=== PATIENT | female | born 2000 ===

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

== ENCOUNTER 2019-01-28 14:43 | Outpatient (CLI) | payer OTHER ==
[2019-01-28 15:25] LABS: Appearance,Urine Clear (Clear); Bilirubin,Urine Negative (Negative); Blood,Urine Negative (Negative); Color,Urine Light Yellow; Glucose,Urine (UA) Negative (Negative); Ketones,Urine Negative (Negative); Leukocyte Esterase,Urine Negative (Negative); Nitrite,Urine Negative (Negative); Protein,Urine Negative (Negative); Specific Gravity,Urine 1.005 (1.001-1.035); Urobilinogen,Urine <2.0 mg/dL (<2.0)
[2019-01-28 15:53] VITALS: BP 123/73; PULSE 86; RESP 16; TEMP 98.2
--- NOTE | 2019-01-28 18:05 | P.MSEPDOC ---
Presenting Problems - Arrival Data Date of Arrival on Unit: 01/28/19 Time of Arrival on Unit: 14:43 Mode of Transport: Ambulatory - Complaint OB-Reason for Admission/Chief Complaint: Possible Onset of Labor Comment: abdominal pain since 1300 Medical History - Information : 1 Para: 0 Term: 0 : 0 Abortions: Spontaneous or Elective: 0 Number of Living Children: 0 - Gestational Age Gestational Age by SHERRON (wks/days): 28 Weeks and 3 Days - History Comment: pt is DOM sees Dr. Thomas, denies abnormality with , had 15 week ultrasound Review of Systems - Review of Systems Constitutional: No problems Breast: No problems ENT: No problems Cardiovascular: No problems Respiratory: No problems Gastrointestinal: No problems Genitourinary: No problems Musculoskeletal: No problems Neurological: No problems Skin: No problems Vital Signs - Temperature Temperature: 98.2 F Temperature Source: Temporal Artery Scan - Pulse Right Sitting Brachial Pulse Rate: 86 Pulse Assessment Method: Automatic Cuff - Respirations Respiratory Rate: 16 Oxygen Delivery Method: Room Air - Blood Pressure Right Arm Sitting Blood Pressure: 123/73 Blood Pressure Mean: 89 Blood Pressure Source: Automatic Cuff Medical Screen Scoring (Pre) - Cervical Exam Dilation: 1-3 cm = 1 Membranes: Intact - Uterine Contractions Frequency: N/A Duration: N/A Intensity: N/A - Assessment - Baby A Baseline FHR: 140 Heart Rate - NICHD Category: Category I (Normal) = 0 Position: N/A Station: N/A - Total Score - Baby A Total Score - Baby A: 1 - Total Score - Baby B Total Score - Baby B: 1 - Total Score - Baby C Total Score - Baby C: 1 - Level of Risk - Baby A Level of Risk - Baby A: Low (0-5) - Level of Risk - Baby B Level of Risk - Baby B: Low (0-5) - Level of Risk - Baby C Level of Risk - Baby C: Low (0-5) Medical Screen Scoring (Post) - Cervical Exam Dilation: 1-3 cm = 1 - Uterine Contractions Frequency: N/A - Assessment - Baby A Heart Rate: 140 Heart Rate - NICHD Category: Category I (Normal) = 0 NST: Reactive - Total Score Total Score - Baby A: 1 Total Score - Baby B: 1 Total Score - Baby C: 1 - Post Treatment Level of Risk Post Treatment Level of Risk - Baby A: Low (0-5) Post Treatment Level of Risk - Baby B: Low (0-5) Post Treatment Level of Risk - Baby C: Low (0-5) Physician Notification (Post) - Physician Notified Physician Notified Date: 01/28/19 Physician Notified Time: 15:55 Spoke With: zEio New Order Received: Yes - Notification Comment Comment: Pt feels much better, UA clear, Dr. Holguin orders ok to discharge follow up with Martha Disposition - Disposition OB Disposition: Discharge to home, Written follow up instructions reviewed Discharge Date: 01/28/19 Discharge Time: 16:00 I agree with the RN Medical Screening Exam: Yes Risk & Benefit of care provided described in d/c instruction: Yes Diagnosis: FALSE LABOR BEFORE 37 COMPLETED WEEKS OF GEST, THIRD TRI (Patient presented to labor and delivery with complaints of contractions. Patient's pre care is with Dr. Thomas and she states that she called the office and they told her since Dr. Thomas was on vacation she should come to [facility] labor and delivery. We have no records on this patient. Patient's cervical exam is closed internal os fibronectin is negative. She's had no appreciable contractions. This time there is no evidence of labor. There is no ev idence of maternal compromise. Patient was discharged home follow up with Dr. Thomas call her office if any further concerns. Patient was informed that she is always welcome here at our Hospital however since her care is with Dr. Thomas she should present to [facility].)
== END 2019-01-28 16:00 | disposition home or self-care (01) ==
LOC: FBPOP 14:43
PROVIDERS: ATTEND Obstetrics & Gynecology
DX: O47.03 False labor before 37 completed weeks of gestation, third trimester (principal); Z3A.28 28 weeks gestation of pregnancy
CPT/HCPCS: 59025; 82731; 81003; G0463; 99213

== ENCOUNTER 2019-03-10 13:32 | Outpatient (CLI) | payer OTHER ==
[2019-03-10 15:04] VITALS: BP 134/74; PULSE 99; RESP 18; TEMP 97.6
--- NOTE | 2019-03-12 15:08 | P.MSEPDOC ---
Presenting Problems - Arrival Data Date of Arrival on Unit: 03/10/19 Time of Arrival on Unit: 13:32 Mode of Transport: EMS - Complaint OB-Reason for Admission/Chief Complaint: Pain Comment: Lower ab pain after walking 20+blocks today Medical History - Information : 1 Para: 0 Term: 0 : 0 Abortions: Spontaneous or Elective: 0 Number of Living Children: 0 - Gestational Age Gestational Age by SHERRON (wks/days): 34 Weeks and 2 Days Review of Systems - Review of Systems Constitutional: No problems Breast: No problems ENT: No problems Cardiovascular: No problems Respiratory: No problems Gastrointestinal: No problems Genitourinary: No problems Musculoskeletal: No problems Neurological: No problems Skin: No problems Vital Signs - Temperature Temperature: 97.6 F Temperature Source: Temporal Artery Scan - Pulse Right Sitting Brachial Pulse Rate: 99 Pulse Assessment Method: Automatic Cuff - Respirations Respiratory Rate: 18 Oxygen Delivery Method: Room Air O2 Sat by Pulse Oximetry: 99 - Blood Pressure Right Arm Sitting Blood Pressure: 134/74 Blood Pressure Mean: 94 Blood Pressure Source: Automatic Cuff Medical Screen Scoring (Pre) - Cervical Exam Dilation: 1-3 cm = 1 Membranes: Intact - Uterine Contractions Frequency: N/A, > 5 minutes apart = 1 Duration: N/A Intensity: N/A - Maternal Vital Signs Maternal Temperature: N/A Maternal Blood Pressure: N/A Signs of Preeclampsia: N/A Maternal Respirations: N/A - Maternal Trauma Maternal Trauma: N/A - Assessment - Baby A Baseline FHR: 150 Heart Rate - NICHD Category: Category I (Normal) = 0 NST: Reactive Position: N/A Station: N/A - Total Score - Baby A Total Score - Baby A: 2 - Total Score - Baby B Total Score - Baby B: 2 - Total Score - Baby C Total Score - Baby C: 2 - Level of Risk - Baby A Level of Risk - Baby A: Low (0-5) - Level of Risk - Baby B Level of Risk - Baby B: Low (0-5) - Level of Risk - Baby C Level of Risk - Baby C: Low (0-5) Physician Notification (Pre) - Physician Notified Physician Notified Date: 03/10/19 Physician Notified Time: 15:14 Physician/Practitioner Notifed:: Yasmany Spoke With: Yasmany New Order Received: Yes - Notification Comment Comment: Spk c\Dr. Jade, advsd , 34 09/06 reports to triage via EMS after walking along distance and experiencing lower ab pain, after rest pt states pain has subsided greatly. SVE //high, no change since triage visit 01/28. Pt reports Sz d.o. with no treatment, last SZ several mths ago. Sees Dr. Thomas for care. Orders rec'd to orally hydrate pt, recheck SVE, if no chng may be d/c home. Medical Screen Scoring (Post) - Cervical Exam Dilation: 1-3 cm = 1 Membranes: Intact - Total Score Total Score - Baby A: 1 Total Score - Baby B: 1 Total Score - Baby C: 1 - Post Treatment Level of Risk Post Treatment Level of Risk - Baby A: Low (0-5) Post Treatment Level of Risk - Baby B: Low (0-5) Post Treatment Level of Risk - Baby C: Low (0-5) Disposition - Disposition OB Disposition: Discharge to home, Written follow up instructions reviewed I agree with the RN Medical Screening Exam: Yes Risk & Benefit of care provided described in d/c instruction: Yes Diagnosis: FALSE LABOR BEFORE 37 COMPLETED WEEKS OF GEST, THIRD TRI
== END 2019-03-10 15:00 | disposition home or self-care (01) ==
LOC: FBPOP 13:32
PROVIDERS: ATTEND Obstetrics & Gynecology Obstetrics
DX: O47.03 False labor before 37 completed weeks of gestation, third trimester (principal); Z3A.34 34 weeks gestation of pregnancy
CPT/HCPCS: 59025; G0463; 99213

== ENCOUNTER → 2019-03-26 | Outpatient (CLI) | payer OTHER ==
--- NOTE | 2019-03-26 12:24 | US ---
EXAMINATION TYPE: US OB >= 14 wk fetus DATE OF EXAM: 03/26/2019 COMPARISON: None CLINICAL HISTORY: Z34.90 Supervision of normal ; growth; TECHNIQUE: Transabdominal (TA) GESTATIONAL AGE / DATING Physician Established: (37 weeks/0 days) EDC: 04/16/2019 Dates by LMP: (36 weeks/4 days) EDC: 04/19/2019 Dates by First Scan: No previous US here. Dates by Current Scan: (34 weeks/0 days) EDC: 05/07/2019 Beta HCG (if available): NA SURVEY IUP: Single PLACENTA: Anterior , multiple placental lakes vs. fenestrations with superior placental hypoechoic ar ea = 2.1 x 2.3 x 1.1cm and inferior placental hypoechoic area = 1.5 x 1.1 x 1.6cm. PREVIA: No Previa DOMENIC: 12.7 cm Normal CERVICAL LENGTH (transabdominal: norm > 3.0cm): 4.2 cm BIOMETRY PRESENTATION: Vertex LIE: Longitudinal BPD: 8.6 cm 34 weeks / 4 days HC: 31.5 cm 35 weeks / 2 days AC: 29.9 cm 33 weeks / 6 days FL: 6.6 cm 33 weeks / 6 days ESTIMATED WEIGHT IN GRAMS: 2341 grams ESTIMATED WEIGHT IN LBS/OZ: 5 lbs. 3 oz. WEIGHT PERCENTAGE BASED ON ESTABLISHED DATES: 3.7% based on physician's EDC HC/AC: 1.05 Normal FL/AC: 22.01 Normal HEART RATE: 152 bpm RHYTHM: Normal Single, live IUP, 34 weeks/0 days, EDC: 05/07/2019, [id number]; low EFW as is less than 10%, but is bas ed on physician's EDC. IMPRESSION: Single live intrauterine with a sonographic age of 34 weeks and 0 days and estimated date o f delivery of 05/07/2019. Dates are discordant with menstrual age. Weight percentage based on [facility] dates of 3.7% however dates are discordant as discussed above.
== END | disposition home or self-care (01) ==
LOC: RADUSWWP 11:00
PROVIDERS: ATTEND Obstetrics & Gynecology
DX: Z34.93 Encounter for supervision of normal pregnancy, unspecified, third trimester (principal)
CPT/HCPCS: 76805

== ENCOUNTER 2019-03-27 11:54 | Emergency (ER) | payer OTHER ==
[2019-03-27 12:21] VITALS: BP 113/77; PULSE 96; RESP 18; TEMP 97.9
--- NOTE | 2019-03-27 13:06 | ED ---
ENT HPI - General Chief complaint: ENT Stated complaint: ENT (37wks preg) Time Seen by Provider: 03/27/19 12:55 Source: patient, RN notes reviewed Mode of arrival: ambulatory Limitations: no limitations - History of Present Illness Initial comments: 18-year-old female presents emergency Department with chief complaint of sore throat. Patient states it has been off for last few days. Patient was still fever. Patient states her tonsils are swollen with white exudates. No abdominal pain. Patient's 37 weeks . She has no complaints of vaginal bleeding or vaginal discharge she does complain of mild fullness of her ears with no drainage denies any headache or dizziness no neck pain or neck stiffness denies any cough or chest congestion [id number] cold medications taken. - Related Data Home Medications Medication Instructions Recorded Confirmed Zqa-Qjni-Crshf Acid 1 cap PO DAILY 06/20/18 03/10/19 [-U Capsule (formulary)] Previous Rx's Medication Instructions Recorded Amoxicillin 500 mg PO Q8H #30 capsule 03/27/19 Allergies Allergy/AdvReac Type Severity Reaction Status Date / Time Fish Containing Products Allergy Swelling Verified 03/27/19 13:14 [Fish] shellfish derived [Shellfish] Allergy Swelling Verified 03/27/19 13:14 Review of Systems ROS Statement: Those systems with pertinent positive or pertinent negative responses have been documented in the HPI. ROS Other: All systems not noted in ROS Statement are negative. Past Medical History Past Medical History: No Reported History History of Any Multi-Drug Resistant Organisms: None Reported Past Surgical History: No Surgical Hx Reported Past Psychological History: No Psychological Hx Reported Smoking Status: Never smoker General Exam Limitations: no limitations General appearance: alert, in no apparent distress Head exam: Present: atraumatic, normocephalic, normal inspection Eye exam: Present: normal appearance, PERRL, EOMI. Absent: scleral icterus, conjunctival injection, periorbital swelling ENT exam: Present: mucous membranes moist, TM's normal bilaterally, normal exte rnal ear exam. Absent: normal oropharynx (Erythema with exudates swollen) Neck exam: Present: normal inspection, full ROM, lymphadenopathy (Bilateral anterior). Absent: tenderness, meningismus Respiratory exam: Present: normal lung sounds bilaterally. Absent: respiratory distress, wheezes, rales, rhonchi, stridor Cardiovascular Exam: Present: regular rate, normal rhythm, normal heart sounds. Absent: systolic murmur, diastolic murmur, rubs, gallop, clicks GI/Abdominal exam: Present: soft, normal bowel sounds. Absent: distended, tenderness, guarding, rebound, rigid Course Vital Signs 03/27/19 12:19 Temperature 97.9 F Pulse Rate 96 Respiratory 18 Rate Blood Pressure 113/77 O2 Sat by Pulse 97 Oximetry Medical Decision Making - Medical Decision Making 18-year-old female presented for sore throat. Patient will be clinically treated for strep pharyngitis. Patient started amoxicillin. Return parameters were discussed. Disposition Clinical Impression: Acute pharyngitis Disposition: HOME SELF-CARE Condition: Stable Instructions (If sedation given, give patient instructions): Pharyngitis (ED) Additional Instructions: Please return to the Emergency Department if symptoms worsen or any other concerns. Prescriptions: Amoxicillin 500 mg PO Q8H #30 capsule Is patient prescribed a controlled substance at d/c from ED?: No Referrals: None,Stated [Primary Care Provider] - 1-2 days Time of Disposition: 13:06
== END 2019-03-27 13:17 | disposition home or self-care (01) ==
LOC: EC 11:54
DX: O99.513 Diseases of the respiratory system complicating pregnancy, third trimester (principal); J02.9 Acute pharyngitis, unspecified; Z3A.37 37 weeks gestation of pregnancy; Z91.013 Allergy to seafood
CPT/HCPCS: 99283

== ENCOUNTER 2019-07-04 14:34 | Emergency (ER) | payer OTHER ==
[2019-07-04] MEDS ORDERED: LIDOCAINE 1% INJ 10MG/ML (20 ML MDV) SQ ONE (16:01)
--- NOTE | 2019-07-04 16:04 | ED ---
Skin/Abscess/FB HPI - General Chief complaint: Skin/Abscess/Foreign Body Stated complaint: Lip piercing stuck in lip Time Seen by Provider: 07/04/19 15:56 Source: patient, RN notes reviewed Mode of arrival: ambulatory Limitations: no limitations - History of Present Illness Initial comments: 18-year-old presents emergency dept with chief complaint of lip ring being stuck. 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 Patient states it but the patient today with states her lip was swollen so she got up with a correct and on it. Patient states that and of her piercing went in. Patient denies any other complaints. - Related Data Home Medications Medication Instructions Recorded Confirmed Orp-Wxeu-Szqqj Acid 1 cap PO DAILY 06/20/18 03/27/19 [-U Capsule (formulary)] Previous Rx's Medication Instructions Recorded Amoxicillin 500 mg PO Q8H #30 capsule 03/27/19 Allergies Allergy/AdvReac Type Severity Reaction Status Date / Time Fish Containing Products Allergy Swelling Verified 07/04/19 15:02 [Fish] shellfish derived [Shellfish] Allergy Swelling Verified 07/04/19 15:02 Review of Systems ROS Statement: Those systems with pertinent positive or pertinent negative responses have been documented in the HPI. ROS Other: All systems not noted in ROS Statement are negative. Past Medical History Past Medical History: No Reported History History of Any Multi-Drug Resistant Organisms: None Reported Past Surgical History: No Surgical Hx Reported Past Psychological History: No Psychological Hx Reported Smoking Status: Never smoker Past Alcohol Use History: None Reported Past Drug Use History: None Reported General Exam Limitations: no limitations General appearance: alert, in no apparent distress Head exam: Present: atraumatic, normocephalic, normal inspection ENT exam: Present: mucous membranes moist. Absent: normal oropharynx (Swelling upper lip noted, piercing noted unable to visualize back of piercing) Respiratory exam: Present: normal lung sounds bilaterally. Absent: respiratory distress, wheezes, rales, rhonchi, stridor Cardiovascular Exam: Present: regular rate, normal rhythm, normal heart sounds. Absent: systolic murmur, diastolic murmur, rubs, gallop, clicks Course Vital Signs 07/04/19 15:06 Temperature 98.1 F Pulse Rate 87 Respiratory 16 Rate Blood Pressure 110/87 O2 Sat by Pulse 99 Oximetry Procedures - Forgein Body Removal Soft Tissue Consent Obtained: verbal consent Site: lip Anesthetic Used: lidocaine 1% Amount (mLs): 2 Foreign Body Suspected: Other (Piercing) Foreign Body Removed: yes Foreign Body Removal Technique: Instrumentation Patient Tolerated Procedure: well, no complications Medical Decision Making - Medical Decision Making Patient's piercing was removed in emergency, no comp patients. Patient will be discharged return parameters were discussed. Disposition Clinical Impression: Body piercing as cause of accidental injury Disposition: HOME SELF-CARE Condition: Stable Instructions (If sedation given, give patient instructions): Acute Wounds (ED) Additional Instructions: Please return to the Emergency Department if symptoms worsen or any other concerns. Is patient prescribed a controlled substance at d/c from ED?: No Referrals: None,Stated [Primary Care Provider] - 1-2 days Time of Disposition: 16:19
[2019-07-04 16:35] VITALS: BP 138/70; PULSE 90; RESP 15; TEMP 98
== END 2019-07-04 16:34 | disposition home or self-care (01) ==
LOC: EC 14:34
DX: S00.551A Superficial foreign body of lip, initial encounter (principal); Z91.013 Allergy to seafood; W27.8XXA Contact with other nonpowered hand tool, initial encounter
CPT/HCPCS: 10120; 99283

== ENCOUNTER 2019-07-26 23:16 | Emergency (ER) | payer OTHER ==
[2019-07-26 23:22] VITALS: RESP 16
[2019-07-27 01:08] LABS: Appearance,Urine Cloudy (Clear); Bacteria,Urine Rare /hpf; Bilirubin,Urine Negative (Negative); Blood,Urine Moderate (Negative); Color,Urine Yellow; Glucose,Urine (UA) Negative (Negative); Ketones,Urine Negative (Negative); Leukocyte Esterase,Urine Trace (Negative); Mucus,Urine Many /hpf; Nitrite,Urine Negative (Negative); PH, Urine 6.5 (5.0-8.0); Protein,Urine Trace (Negative); RBC,Urine 3 /hpf (0-5); Squamous Epithelial Cell,Urine 14 /hpf (0-4); Urobilinogen,Urine <2.0 mg/dL (<2.0); WBC,Urine 12 /hpf (0-5)
--- NOTE | 2019-07-27 01:18 | XR ---
EXAMINATION TYPE: XR chest 2V DATE OF EXAM: 07/27/2019 COMPARISON: NONE HISTORY: Cough and fever TECHNIQUE: 2 views FINDINGS: Heart and mediastinum are normal. Lungs are clear. Diaphragm is normal. Bony thorax appears normal. IMPRESSION: Normal chest
[2019-07-27] MEDS ORDERED: AMOXICILLIN 875 MG TAB PO STA (01:41)
--- NOTE | 2019-07-27 01:44 | ED ---
General Adult HPI - General Chief complaint: ENT Stated complaint: Ear pain Time Seen by Provider: 07/26/19 23:20 Source: patient Mode of arrival: ambulatory Limitations: no limitations - History of Present Illness Initial comments: The patient is a 18-year-old female with no past history of presents emergency room with reported bilateral ear pain and nasal congestion. States that her ear has been hurting her for the past week. The right hurts worse than the left. Has a history of chronic ear infections. Was supposed to follow up with an ENT however never did. She also admits to clear nasal drainage and a sore scratchy throat. Admits to nonproductive cough. States that she was having fevers at home however the fever broke yesterday. She has not taken any Motrin or Tylenol today for her symptoms. Denies taking any medications [id number]. Denies any headaches or visual changes. No nausea or vomiting. Denies any abdominal pain or change in her bowel or bladder habits. Does admit to the possibility of . There are no alleviating, precipitating or modifying factors - Related Data Home Medications Medication Instructions Recorded Confirmed Xhg-Bjva-Gfzfc Acid 1 cap PO DAILY 06/20/18 03/27/19 [-U Capsule (formulary)] Previous Rx's Medication Instructions Recorded Amoxicillin 500 mg PO Q8H #30 capsule 03/27/19 Amoxicillin 875 mg PO Q12HR #14 tablet 07/27/19 Fluticasone Nasal [place] [Flonase 2 spr EA NOSTRIL DAILY #1 bottle 07/27/19 Nasal [place]] Pseudoephedrine 12Hr [Sudafed 12Hr] 120 mg PO Q12H #1 box 07/27/19 Allergies Allergy/AdvReac Type Severity Reaction Status Date / Time Fish Containing Products Allergy Swelling Verified 07/26/19 23:22 [Fish] shellfish derived [Shellfish] Allergy Swelling Verified 07/26/19 23:22 Review of Systems ROS Statement: Those systems with pertinent positive or pertinent negative responses have been documented in the HPI. ROS Other: All systems not noted in ROS Statement are negative. Past Medical History Past Medical History: No Reported History History of Any Multi-Drug Resistant Organisms: None Reported Past Surgical History: No Surgical Hx Reported Past Psychological History: No Psychological Hx Reported Smoking Status: Never smoker Past Alcohol Use History: None Reported Past Drug Use History: None Reported General Exam Limitations: no limitations General appearance: alert, in no apparent distress Head exam: Present: atraumatic, normocephalic, normal inspection Eye exam: Present: normal appearance, PERRL, EOMI. Absent: scleral icterus, conjunctival injection, periorbital swelling ENT exam: Present: other (nasal congestion. njected right tm) Neck exam: Present: normal inspection. Absent: tenderness, meningismus, lymphadenopathy Respiratory exam: Present: normal lung sounds bilaterally. Absent: respiratory distress, wheezes, rales, rhonchi, stridor Cardiovascular Exam: Present: regular rate, normal rhythm, normal heart sounds. Absent: systolic murmur, diastolic murmur, rubs, gallop, clicks GI/Abdominal exam: Present: soft, normal bowel sounds. Absent: distended, tenderness, guarding, rebound, rigid Extremities exam: Present: normal inspection, full ROM, normal capillary refill. Absent: tenderness, pedal edema, joint swelling, calf tenderness Back exam: Present: normal inspection Neurological exam: Present: alert, oriented X3, CN II-XII intact Psychiatric exam: Present: normal affect, normal mood Skin exam: Present: warm, dry, intact, normal color. Absent: rash Course Vital Signs 07/26/19 07/27/19 23:19 02:02 Temperature 98.0 F 97.9 F Pulse Rate 67 72 Respiratory 16 16 Rate Blood Pressure 126/85 133/92 O2 Sat by Pulse 99 99 Oximetry Medical Decision Making - Medical Decision Making Upon arrival the patient was placed in room 11. A thorough history and physical exam was performed. Patient does have an erythematous right tympanic membrane. I did recommend influenza testing and a chest x-ray because of the patient's reported fevers and cough. I did test the patient for as well as she does have concern for . Influenza A and B are negative. Chest x-ray is negative. Urine hCG is negative. Discuss results with the patient. Give her dose of amoxicillin while in the ED. She will be provided with prescriptio ns for Flonase, Sudafed and amoxicillin. I did give her follow-up information for the ENT on-call. Patient has any new or worsening symptoms she should return to the emergency room. The patient was discharged home in stable condition - Lab Data Lab Results 07/27/19 07/27/19 07/27/19 Range/Units 00:37 00:37 00:37 Urine Color Yellow Urine Appearance Cloudy H (Clear) Urine pH 6.5 (5.0-8.0) Ur Specific [place] 1.020 (1.001-1.035) Urine Protein Trace H (Negative) Urine Glucose (UA) Negative (Negative) Urine Ketones Negative (Negative) Urine Blood Moderate H (Negative) Urine Nitrite Negative (Negative) Urine Bilirubin Negative (Negative) Urine Urobilinogen <2.0 (<2.0) mg/dL Ur Leukocyte Esterase Trace H (Negative) Urine RBC 3 (0-5) /hpf Urine WBC 12 H (0-5) /hpf Ur Squamous Epith Cells 14 H (0-4) /hpf Urine Bacteria Rare H (None) /hpf Urine Mucus Many H (None) /hpf Urine HCG, Qual Not Detected (Not Detectd) Influenza Type A RNA Not Detected (Not Detectd) Influenza Type B (PCR) Not Detected (Not Detectd) Disposition Clinical Impression: Right otitis media, Rhinorrhea Disposition: HOME SELF-CARE Condition: Stable Instructions (If sedation given, give patient instructions): Ear Infection (ED) Additional Instructions: Follow-up with the primary care doctor in 2-4 days. Return to the emergency room for any new or worsening symptoms. I also recommend he see an ENT doctor Prescriptions: Amoxicillin 875 mg PO Q12HR #14 tablet Fluticasone Nasal [place] [Flonase Nasal [place]] 2 spr EA NOSTRIL DAILY #1 bottle Pseudoephedrine 12Hr [Sudafed 12Hr] 120 mg PO Q12H #1 box Is patient prescribed a controlled substance at d/c from ED?: No Referrals: None,Stated [Primary Care Provider] - 1-2 days Juan Schumacher MD [STAFF PHYSICIAN] - 1-2 days Time of Disposition: 01:43
[2019-07-27 02:03] VITALS: BP 133/92; PULSE 72; TEMP 97.9
== END 2019-07-27 02:03 | disposition home or self-care (01) ==
LOC: EC 23:16
DX: H66.91 Otitis media, unspecified, right ear (principal); J34.89 Other specified disorders of nose and nasal sinuses; Z32.02 Encounter for pregnancy test, result negative; R05 Cough; R09.81 Nasal congestion; H92.02 Otalgia, left ear; R09.89 Other specified symptoms and signs involving the circulatory and respiratory systems; Z91.013 Allergy to seafood; Z86.19 Personal history of other infectious and parasitic diseases
CPT/HCPCS: 71046; 81001; 81025; 87502; 99283

== ENCOUNTER 2019-11-13 18:54 | Emergency (ER) | payer OTHER ==
[2019-11-13] MEDS ORDERED: SODIUM CHLORIDE 0.9% 1,000 ML IV STA (19:28)
[2019-11-13] MEDS ORDERED: LORazepam 2 MG/ML INJ IV STA (19:32)
--- NOTE | 2019-11-13 19:33 | ED ---
General Adult HPI - General Chief complaint: Seizure Stated complaint: seizure Time Seen by Provider: 11/13/19 19:07 Source: patient, RN notes reviewed Mode of arrival: ambulatory Limitations: no limitations - History of Present Illness Initial comments: 18-year-old female with a past medical history of seizure disorder presents to the emergency department for a chief complaint of possible seizure. She states that about one hour prior to arrival she had what she thinks is a seizure. States that she got out of the bathtub to go and get a speaker when she lost consciousness. States that she woke up on the ground and did hit her head. Patient states she has had many seizures in the past 2 years but has never seen a neurologist. She is unsure if she ever had a CAT scan. Patient states she was very stressed today and thinks this may have contributed. States that she was broken up with last night. Patient does not take any medications but does have the depo shot. Patient has no other complaints at this time including shortness of breath, chest pain, abdominal pain, nausea or vomiting, headache, or visual changes. - Related Data Home Medications Medication Instructions Recorded Confirmed Ffm-Qoog-Vmtbe Acid 1 cap PO DAILY 06/20/18 03/27/19 [-U Capsule (formulary)] Previous Rx's Medication Instructions Recorded Amoxicillin 500 mg PO Q8H #30 capsule 03/27/19 Amoxicillin 875 mg PO Q12HR #14 tablet 07/27/19 Fluticasone Nasal [place] [Flonase 2 spr EA NOSTRIL DAILY #1 bottle 07/27/19 Nasal [place]] Pseudoephedrine 12Hr [Sudafed 12Hr] 120 mg PO Q12H #1 box 07/27/19 Allergies Allergy/AdvReac Type Severity Reaction Status Date / Time Fish Containing Products Allergy Swelling Verified 11/13/19 18:59 [Fish] shellfish derived [Shellfish] Allergy Swelling Verified 11/13/19 18:59 Review of Systems ROS Statement: Those systems with pertinent positive or pertinent negative responses have been documented in the HPI. ROS Other: All systems not noted in ROS Statement are negative. Past Medical History Past Medical History: Seizure Disorder History of Any Multi-Drug Resistant Organisms: None Reported Past Surgical History: No Surgical Hx Reported Past Psychological History: No Psychological Hx Reported Smoking Status: Never smoker Past Alcohol Use History: None Reported Past Drug Use History: None Reported General Exam Limitations: no limitations General appearance: alert, in no apparent distress Head exam: Present: atraumatic, normocephalic, normal inspection Eye exam: Present: normal appearance, PERRL, EOMI. Absent: scleral icterus, conjunctival injection, periorbital swelling ENT exam: Present: normal exam, normal oropharynx, mucous membranes moist, normal external ear exam Neck exam: Present: normal inspection, full ROM. Absent: tenderness, meningism us, lymphadenopathy Respiratory exam: Present: normal lung sounds bilaterally. Absent: respiratory distress, wheezes, rales, rhonchi, stridor Cardiovascular Exam: Present: regular rate, normal rhythm, normal heart sounds. Absent: systolic murmur, diastolic murmur, rubs, gallop, clicks GI/Abdominal exam: Present: soft, normal bowel sounds. Absent: distended, tenderness, guarding, rebound, rigid Neurological exam: Present: alert, oriented X3, other (GCS 15) Psychiatric exam: Present: anxious Course Vital Signs 11/13/19 11/13/19 18:56 20:26 Temperature 98.3 F Pulse Rate 51 L 66 Respiratory 22 16 Rate Blood Pressure 135/85 124/69 O2 Sat by Pulse 94 L 94 L Oximetry EKG Findings - EKG Comments: EKG Findings:: Sinus bradycardia, ventricular rate 57, [place] int 136, QTC 414 Medical Decision Making - Medical Decision Making Vitals are stable. Patient is not in any respiratory distress. CBC CMP is unremarkable. Urine drug screen is positive for marijuana otherwise negative. Alcohol is negative. HCG is not detected. CT of the brain was obtained as we do not have previous computed tomography scan. This was normal. Patient is at baseline at this time. She has been having the same symptoms for 2 years. She has not followed up with a neurologist. At this time this may have been a syncopal episode versus a seizure. However I discussed with the patient that this is very important to follow-up with sa neurologist. And she is agreeable to this. She will be discharged home to follow-up. - Lab Data Result diagrams: 11/13/19 19:25 11/13/19 19:25 Lab Results 11/13/19 11/13/19 11/13/19 Range/Units 19:25 19:25 19:55 WBC 4.8 (4.0-11.0) k/uL RBC 4.66 (3.80-5.40) m/uL Hgb 13.5 (11.4-16.0) gm/dL Hct 40.2 (34.0-46.0) % MCV 86.2 (80.0-100.0) fL MCH 29.0 (25.0-35.0) pg MCHC 33.6 (31.0-37.0) g/dL RDW 12.4 (11.5-15.5) % Plt Count 243 (150-450) k/uL Neutrophils % 60 % Lymphocytes % 32 % Monocytes % 5 % Eosinophils % 1 % Basophils % 0 % Neutrophils # 2.9 (1.3-7.7) k/uL Lymphocytes # 1.6 (1.0-4.8) k/uL Monocytes # 0.2 (0-1.0) k/uL Eosinophils # 0.1 (0-0.7) k/uL Basophils # 0.0 (0-0.2) k/uL Sodium 140 (137-145) mmol/L Potassium 4.0 (3.5-5.1) mmol/L Chloride 105 (98-107) mmol/L Carbon Dioxide 26 (22-30) mmol/L Anion Gap 9 mmol/L BUN 12 (7-17) mg/dL Creatinine 0.67 (0.52-1.04) mg/dL Est GFR (CKD-EPI)AfAm >90 (>60 ml/min/1.73 sqM) Est GFR (CKD-EPI)NonAf >90 (>60 ml/min/1.73 sqM) Glucose 87 (74-99) mg/dL Calcium 9.7 (8.4-10.2) mg/dL Total Bilirubin 0.3 (0.2-1.3) mg/dL AST 22 (14-36) U/L ALT 12 (4-34) U/L Alkaline Phosphatase 54 (38-126) U/L Total Protein 7.3 (6.3-8.2) g/dL Albumin 4.6 (3.5-5.0) g/dL Urine Color Yellow Urine Appearance Cloudy H (Clear) Urine pH 6.5 (5.0-8.0) Ur Specific [place] 1.022 (1.001-1.035) Urine Protein Trace H (Negative) Urine Glucose (UA) Negative (Negative) Urine Ketones Negative (Negative) Urine Blood Negative (Negative) Urine Nitrite Negative (Negative) Urine Bilirubin Negative (Negative) Urine Urobilinogen <2.0 (<2.0) mg/dL Ur Leukocyte Esterase Small H (Negative) Urine RBC 1 (0-5) /hpf Urine WBC 6 H (0-5) /hpf Ur Squamous Epith Cells 15 H (0-4) /hpf Urine Mucus Many H (None) /hpf Urine HCG, Qual (Not Detectd) Urine Opiates Screen Not Detected (NotDetected) Ur Oxycodone Screen Not Detected (NotDetected) Urine Methadone Screen Not Detected (NotDetected) Ur Propoxyphene Screen Not Detected (NotDetected) Ur Barbiturates Screen Not Detected (NotDetected) U Tricyclic Antidepress Not Detected (NotDetected) Ur Phencyclidine Scrn Not Detected (NotDetected) Ur Amphetamines Screen Not Detected (NotDetected) U Methamphetamines Scrn Not Detected (NotDetected) U Benzodiazepines Scrn Not Detected (NotDetected) Urine Cocaine Screen Not Detected (NotDetected) U Marijuana (THC) Screen Detected H (NotDetected) Serum Alcohol <10 mg/dL 11/13/19 Range/Units 19:55 WBC (4.0-11.0) k/uL RBC (3.80-5.40) m/uL Hgb (11.4-16.0) gm/dL Hct (34.0-46.0) % MCV (80.0-100.0) fL MCH (25.0-35.0) pg MCHC (31.0-37.0) g/dL RDW (11.5-15.5) % Plt Count (150-450) k/uL Neutrophils % % Lymphocytes % % Monocytes % % Eosinophils % % Basophils % % Neutrophils # (1.3-7.7) k/uL Lymphocytes # (1.0-4.8) k/uL Monocytes # (0-1.0) k/uL Eosinophils # (0-0.7) k/uL Basophils # (0-0.2) k/uL Sodium (137-145) mmol/L Potassium (3.5-5.1) mmol/L Chloride (98-107) mmol/L Carbon Dioxide (22-30) mmol/L Anion Gap mmol/L BUN (7-17) mg/dL Creatinine (0.52-1.04) mg/dL Est GFR (CKD-EPI)AfAm (>60 ml/min/1.73 sqM) Est GFR (CKD-EPI)NonAf (>60 ml/min/1.73 sqM) Glucose (74-99) mg/dL Calcium (8.4-10.2) mg/dL Total Bilirubin (0.2-1.3) mg/dL AST (14-36) U/L ALT (4-34) U/L Alkaline Phosphatase (38-126) U/L Total Protein (6.3-8.2) g/dL Albumin (3.5-5.0) g/dL Urine Color Urine Appearance (Clear) Urine pH (5.0-8.0) Ur Specific [place] (1.001-1.035) Urine Protein (Negative) Urine Glucose (UA) (Negative) Urine Ketones (Negative) Urine Blood (Negative) Urine Nitrite (Negative) Urine Bilirubin (Negative) Urine Urobilinogen (<2.0) mg/dL Ur Leukocyte Esterase (Negative) Urine RBC (0-5) /hpf Urine WBC (0-5) /hpf Ur Squamous Epith Cells (0-4) /hpf Urine Mucus (None) /hpf Urine HCG, Qual Not Detected (Not Detectd) Urine Opiates Screen (NotDetected) Ur Oxycodone Screen (NotDetected) Urine Methadone Screen (NotDetected) Ur Propoxyphene Screen (NotDetected) Ur Barbiturates Screen (NotDetected) U Tricyclic Antidepress (NotDetected) Ur Phencyclidine Scrn (NotDetected) Ur Amphetamines Screen (NotDetected) U Methamphetamines Scrn (NotDetected) U Benzodiazepines Scrn (NotDetected) Urine Cocaine Screen (NotDetected) U Marijuana (THC) Screen (NotDetected) Serum Alcohol mg/dL Disposition Clinical Impression: Recurrent seizures Disposition: HOME SELF-CARE Condition: Good Instructions (If sedation given, give patient instructions): Recurrent Seizures in Adults (ED) Additional Instructions: Please follow up with neurology in 1-2 days. Return to the emergency department if you have any worsening symptoms or additional seizures. Is patient prescribed a controlled substance at d/c from ED?: No Referrals: Faisal Palencia MD [Medical Doctor] - 1-2 days Leno Jaime MD [REFERRING] - 1-2 days Time of Disposition: 21:08
[2019-11-13 20:03] LABS: Basophils % (A) 0 %; Eosinophils # (A) 0.1 k/uL (0-0.7); Eosinophils % (A) 1 %; HCT 40.2 % (34.0-46.0); HGB 13.5 gm/dL (11.4-16.0); Lymphocytes # (A) 1.6 k/uL (1.0-4.8); Lymphocytes % (A) 32 %; MCHC 33.6 g/dL (31.0-37.0); MCV 86.2 fL (80.0-100.0); Mean Platelet Volume 7.8; Monocytes # (A) 0.2 k/uL (0-1.0); Monocytes % (A) 5 %; Neutrophils # (A) 2.9 k/uL (1.3-7.7); Neutrophils % (A) 60 %; Platelet Count 243 k/uL (150-450); RBC 4.66 m/uL (3.80-5.40); RDW 12.4 % (11.5-15.5); WBC 4.8 k/uL (4.0-11.0)
[2019-11-13 20:12] LABS: ALT 12 U/L (4-34); AST 22 U/L (14-36); African American GFR (CKD) >90 (>60 ml/min/1.73 sqM); Albumin 4.6 g/dL (3.5-5.0); Alcohol <10 mg/dL; Alkaline Phosphatase 54 U/L (38-126); Anion Gap 9 mmol/L; Blood Urea Nitrogen 12 mg/dL (7-17); Calcium 9.7 mg/dL (8.4-10.2); Carbon Dioxide 26 mmol/L (22-30); Chloride 105 mmol/L (98-107); Glucose 87 mg/dL (74-99); Non-African American GFR(CKD) >90 (>60 ml/min/1.73 sqM); Sodium 140 mmol/L (137-145); Total Bilirubin 0.3 mg/dL (0.2-1.3); Total Protein 7.3 g/dL (6.3-8.2)
[2019-11-13 20:35] LABS: Appearance,Urine Cloudy (Clear); Bilirubin,Urine Negative (Negative); Blood,Urine Negative (Negative); Color,Urine Yellow; Glucose,Urine (UA) Negative (Negative); Ketones,Urine Negative (Negative); Leukocyte Esterase,Urine Small (Negative); Mucus,Urine Many /hpf; Nitrite,Urine Negative (Negative); PH, Urine 6.5 (5.0-8.0); Protein,Urine Trace (Negative); RBC,Urine 1 /hpf (0-5); Specific Gravity,Urine 1.022 (1.001-1.035); Squamous Epithelial Cell,Urine 15 /hpf (0-4); Urobilinogen,Urine <2.0 mg/dL (<2.0); WBC,Urine 6 /hpf (0-5)
[2019-11-13 20:42] LABS: Amphetamine Screen,Urine Not Detected (NotDetected); Barbiturate Screen,Urine Not Detected (NotDetected); Benzodiazepines Screen,Urine Not Detected (NotDetected); Cocaine Screen,Urine Not Detected (NotDetected); Methadone Screen, Urine Not Detected (NotDetected); Opiate Screen,Urine Not Detected (NotDetected); Oxycodone Screen, Urine Not Detected (NotDetected); Phencyclidine Screen,Urine Not Detected (NotDetected); Tricyclic Antidepressant,Urine Not Detected (NotDetected); Urn Cannabinoid Scrn Detected (NotDetected)
--- NOTE | 2019-11-13 21:03 | CT ---
EXAMINATION TYPE: CT brain wo con DATE OF EXAM: 11/13/2019 COMPARISON: None HISTORY: seizures today, history of prior seizures CT DLP: 1099.4 mGycm Automated exposure control for dose reduction was used. Ventricles and sulci appear normal. There is no mass effect nor midline shift. There is no sign of in tracranial hemorrhage. Barium is intact. There is no evidence of cerebral edema. IMPRESSION: Normal unenhanced head CT scan.
[2019-11-13 22:02] VITALS: BP 127/88; PULSE 62; RESP 18; TEMP 98.6
== END 2019-11-13 21:59 | disposition home or self-care (01) ==
LOC: EC 18:54
DX: G40.909 Epilepsy, unspecified, not intractable, without status epilepticus (principal); R78.89 Finding of other specified substances, not normally found in blood; Z91.013 Allergy to seafood
CPT/HCPCS: 36415; 80053; 85025; 81001; 81025; 80306; 70450; 99284; 96374; 96361; G0480; J2060; 80320

== ENCOUNTER 2019-11-22 03:06 | Inpatient (IN) | payer MEDICAID, OTHER ==
--- NOTE | 2019-11-22 03:47 | ED ---
Psych HPI - General Stated Complaint: Mental health Time Seen by Provider: 11/22/19 03:10 Source: police, EMS Mode of arrival: EMS - History of Present Illness Initial Comments: This patient is a 18-year-old girl brought to be evaluated for suicidal ideation. The patient had reportedly made suicidal statements and had perform some superficial laceration to the right forearm. Law enforcement and EMS were called and transported patient here. The patient states she had relationship problems. Patient states tetanus immunization is up-to-date. MD Complaint: suicidal ideation, feels depressed -: hour(s) Associated Psychiatric Symptoms: depression, suicidal ideation History of same: Yes Quality: changing over time Improves With: none Worsens With: none Context: significant life stressor Associated Symptoms: denies other symptoms - Related Data Home Medications Medication Instructions Recorded Confirmed Yxz-Snmb-Maahl Acid 1 cap PO DAILY 06/20/18 03/27/19 [-U Capsule (formulary)] Previous Rx's Medication Instructions Recorded Amoxicillin 500 mg PO Q8H #30 capsule 03/27/19 Amoxicillin 875 mg PO Q12HR #14 tablet 07/27/19 Fluticasone Nasal [place] [Flonase 2 spr EA NOSTRIL DAILY #1 bottle 07/27/19 Nasal [place]] Pseudoephedrine 12Hr [Sudafed 12Hr] 120 mg PO Q12H #1 box 07/27/19 Allergies Allergy/AdvReac Type Severity Reaction Status Date / Time Fish Containing Products Allergy Swelling Verified 11/13/19 18:59 [Fish] shellfish derived [Shellfish] Allergy Swelling Verified 11/13/19 18:59 Review of Systems ROS Statement: Those systems with pertinent positive or pertinent negative responses have been documented in the HPI. ROS Other: All systems not noted in ROS Statement are negative. Constitutional: Denies: fever, chills Respiratory: Denies: cough, dyspnea Cardiovascular: Denies: chest pain, palpitations, edema Gastrointestinal: Denies: abdominal pain, vomiting, diarrhea Genitourinary: Denies: dysuria, hematuria Musculoskeletal: Denies: back pain Neurological: Denies: headache Psychiatric: Reports: depression, suicidal thoughts. Denies: auditory hallucinations, visual hallucinations, homicidal thoughts Past Medical History Past Medical History: Seizure Disorder History of Any Multi-Drug Resistant Organisms: None Reported Past Surgical History: No Surgical Hx Reported Past Psychological History: No Psychological Hx Reported Smoking Status: Never smoker Past Alcohol Use History: None Reported Past Drug Use History: None Reported General Exam Limitations: no limitations General appearance: alert, anxious Head exam: Present: atraumatic, normocephalic Respiratory exam: Present: normal lung sounds bilaterally. Absent: respiratory distress, wheezes, rales, rhonchi, stridor Cardiovascular Exam: Present: regular rate, normal rhythm, normal heart sounds. Absent: systolic murmur, diastolic murmur, rubs, gallop GI/Abdominal exam: Present: soft. Absent: tenderness, guarding, rebound Neurological exam: Present: alert Psychiatric exam: Present: depressed, anxious, suicidal ideation. Absent: agitated, flat affect, manic, homicidal ideation Skin exam: Present: warm, dry, normal color, abrasion (Left forearm) Course Vital Signs 11/22/19 03:10 Temperature 99.0 F Pulse Rate 117 H Respiratory 20 Rate Blood Pressure 156/86 O2 Sat by Pulse 97 Oximetry Disposition Clinical Impression: Mood disorder Disposition: ADMITTED IP TO THIS HOSP Condition: Fair Is patient prescribed a controlled substance at d/c from ED?: No Referrals: None,Stated [Primary Care Provider] - 1-2 days
[2019-11-22] MEDS ORDERED: IBUPROFEN 600 MG TAB PO STA (04:17)
[2019-11-22] MEDS ORDERED: MAGNESIUM HYDROXIDE 2,400 MG/10 ML CUP PO PRN (05:34)
[2019-11-22] MEDS ORDERED: LORazepam 1 MG TAB PO PRN (05:34)
[2019-11-22] MEDS ORDERED: MAG HYDROX/AL HYDROX/SIMETH 30 ML CUP PO PRN (05:34)
[2019-11-22] MEDS ORDERED: ACETAMINOPHEN TAB 325 MG TAB PO PRN (05:34)
[2019-11-22] MEDS ORDERED: ZIPRASIDONE 20 MG VIAL IM PRN (05:34)
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
[2019-11-22] MEDS: lamoTRIgine 25 MG TAB PO SCH ×2 (13:10→21:48)
--- NOTE | 2019-11-22 15:09 | MR ---
PRE AND POSTCONTRAST ENHANCED MRI OF THE BRAIN: CLINICAL HISTORY: New onset seizures in 18 yo CONTRAST: 5 ml gadavist Multiplanar and multispin-echo imaging of the brain was performed both before and after the administr ation of contrast. The ventricles, basal cisterns and sulci overlying the cerebral convexities are within normal limits. There is no evidence for midline shift or mass effect. Acute intracranial hemorrhage or extra-axial collection is not evident. There are no abnormal areas of increased or decreased signal intensity within the brain parenchyma. Following contrast administration, there is no evidence for pathologic enhancement or enhancing mass. The paranasal sinuses and mastoid air cells are well-aerated. IMPRESSION: Unremarkable pre and postcontrast enhanced MRI of the brain.
--- NOTE | 2019-11-22 15:10 | MR ---
EXAMINATION TYPE: MR angio head/neck wo con DATE OF EXAM: 11/22/2019 2:59 PM COMPARISON: NONE HISTORY: eval for aneurysm dissection. New Onset Seizures. Three-dimensional [id number] intracranial MRA was performed with multiple intensity projection im ages submitted and source data reviewed at the workstation. The vertebrobasilar system as well as intracranial portions of the internal carotid arteries and thei r major tributaries are patent. No evidence for dissection. The dominant left A1 segment. I do not se e evidence for sizable aneurysm or vascular malformation. IMPRESSION: No evidence for dissection or sizable vascular malformation.
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
[2019-11-23 06:56] LABS: Basophils % (A) 0 %; Eosinophils # (A) 0.1 k/uL (0-0.7); Eosinophils % (A) 2 %; HGB 13.7 gm/dL (11.4-16.0); Lymphocytes # (A) 3.1 k/uL (1.0-4.8); Lymphocytes % (A) 51 %; MCH 28.9 pg (25.0-35.0); MCHC 32.5 g/dL (31.0-37.0); Mean Platelet Volume 7.7; Monocytes # (A) 0.3 k/uL (0-1.0); Monocytes % (A) 5 %; Neutrophils # (A) 2.5 k/uL (1.3-7.7); Neutrophils % (A) 41 %; Platelet Count 233 k/uL (150-450); RBC 4.73 m/uL (3.80-5.40); RDW 12.5 % (11.5-15.5); WBC 6.1 k/uL (4.0-11.0)
[2019-11-23 07:04] LABS: ALT 12 U/L (4-34); AST 21 U/L (14-36); African American GFR (CKD) >90 (>60 ml/min/1.73 sqM); Albumin 4.6 g/dL (3.5-5.0); Alkaline Phosphatase 54 U/L (38-126); Anion Gap 7 mmol/L; Bilirubin,Unconjugated 0.8 mg/dL (0.0-1.1); Blood Urea Nitrogen 18 mg/dL (7-17); Carbon Dioxide 27 mmol/L (22-30); Chloride 105 mmol/L (98-107); Cholesterol 180 mg/dL (<200); Glucose 89 mg/dL (74-99); HDL Cholesterol 46 mg/dL (40-60); LDL Cholesterol,Calculated 120 mg/dL (0-99); Non-African American GFR(CKD) >90 (>60 ml/min/1.73 sqM); Potassium 4.3 mmol/L (3.5-5.1); Sodium 139 mmol/L (137-145); Total Bilirubin 0.7 mg/dL (0.2-1.3); Total Protein 7.6 g/dL (6.3-8.2); Triglycerides 70 mg/dL (<150)
[2019-11-23] MEDS: lamoTRIgine 25 MG TAB PO SCH (08:24)
--- NOTE | 2019-11-23 09:51 | P.PN ---
Progress Note - Text Interval history: The patient's found in her room she does not wish to speak with me and an interview room as she states she feels nauseous. She states that she is hungry but doesn't feel she can go down and eat. She has not been vomiting. Staff reported she slept about 6 hours last evening. No group attendance today. She was seen by neurology that consult was reviewed. Neurology agreed with the initiation of Lamictal but lowered the dose. She underwent an MRI of her brain which was unremarkable. She is due to have an EEG soon. Because of the nausea we discussed deferring the initiation of Zoloft another day. The patient indicates that she could not be as she receives a Depo-Provera injection. Mental status exam: The patient is alert she is lying in bed she is dressed in her own clothing she makes brief eye contact she indicates that she does not physically feel well in terms of nausea. She reports her mood otherwise is okay. She feels safe in the hospital she continues to have no thoughts of harming others. He continues to report no auditory or visual hallucinations or any specific delusions. She demonstrates no verbal or physical aggressiveness she demonstrates no involuntary repetitive movements. Insight and judgment remain limited. Our session was abbreviated due to her partial cooperation. Plan: The patient will continue on her current medication. Neurology agrees with the Lamictal as an anticonvulsant and we are also using that to assist with mood stabilization. I would like to initiate Zoloft during the hospitalization for depression. We will await results of further diagnostic studies. Neurology input appreciated. Vital signs reviewed.
[2019-11-23 14:19] LABS: Hemoglobin A1C 5.2 % (4.0-6.0)
[2019-11-24] MEDS: lamoTRIgine 25 MG TAB PO SCH (08:51)
--- NOTE | 2019-11-24 13:39 | P.PN ---
Progress Note - Text Interval history: The patient is found in her room she follows me to an interview room. She did have her EEG this morning. She states that her mood is much improved. She states that she feels much more hopeful that her seizures are being addressed appropriately. She states that telephone calls to family and her boyfriend have been supportive. She is aware of the direction that she is not able to drive now for 6 months and she states that will be fine as her boyfriend typically drives her anyway. We discussed starting the Zoloft for depressive and anxiety symptoms and she is agreeable. She did have a good conversation with her mother and learned that her mother also was treated for mental illness several times in the past. There was no report of what medication she may have been on however. Mental status exam: The patient is alert she's just room clothing hygiene grooming adequate. Eye contact is good speech is fluent and spontaneous nonpressured. She reports that she feels more hopeful. Mood is better affect is more euthymic. She reports feeling safe she is endorsing no acute suicidal or homicidal ideation intent or plan. She is reporting no symptoms of psychosis there is no observed evidence of psychosis. She demonstrates no tangential thinking loose associations or flight of ideas she does not appear hypomanic or manic. Insight and judgment improving. She remains oriented to person place and date. She demonstrates no verbal or physical aggressiveness. Plan: The patient will continue on the Lamictal as written. We discussed titrating the dose further we discussed initiating Zoloft starting tomorrow. She is agreeable to the treatment plan. We will involve family in her discharge planning as she will allow. She is encouraged to fully participate in the milieu.
[2019-11-25] MEDS: lamoTRIgine 25 MG TAB PO SCH (08:35)
[2019-11-25] MEDS: SERTRALINE 25 MG TAB PO SCH (08:35)
--- NOTE | 2019-11-25 09:50 | P.PN ---
Progress Note - Text Interval history: The patient is found in the [facility] she follows me to an interview room. She indicates her mood is significantly better. She continues to have phone conversations with family and friends and they are supportive. She continues to state that she is very happy that we have been able to diagnose her seizure disorder and begin treatment. We initiated the Zoloft today she has no questions or concerns. Appetite stable she indicates she sleeping at night. She has been attending groups. Mental status exam: The patient is alert she is dressed in her own clothing hygiene grooming are good. Eye contact is good. Speech is fluent nonspontaneous nonpressured. She reports her mood is much improved she is reporting no suicidal or homicidal ideation intent or plan. She is demonstrating no tangential thinking loose associations or flight of ideas. She does not appear hypomanic or manic. There is no evidence or report of psychosis. Insight and judgment are improving. She remains oriented to person place and date. Plan: The patient will continue on her current medication. We will titrate the Zoloft and Lamictal further tomorrow. Social work will be asked to contact family for a telephone support meeting. If she demonstrates continued improvement we will consider discharging her tomorrow. Vital signs reviewed. We will await any further input from neurology.
--- NOTE | 2019-11-25 11:04 | EEG ---
ELECTROENCEPHALOGRAM REPORT DATE OF SERVICE: 11/24/2019 HISTORY: This is an inpatient EEG performed on a 18-year-old female admitted to the behavioral unit. Patient was admitted for increased agitation and suicidal ideation. Patient has a history of prior generalized tonic-clonic seizures. Currently on Lamictal. TECHNICAL REPORT: This is an inpatient EEG performed on the [employer] EEG monitor with electrodes placed according to the International 10-20 system and a single EKG channel. Simultaneous video EEG monitoring was performed. This EEG was reviewed in both longitudinal bipolar, common average referential and transverse montages. Photic stimulation and hyperventilation were performed. The recording begins with the patient in quiet wakefulness with a well modulated, moderate amplitude 9-10 Hz posterior dominant rhythm that attenuates with eye opening. Increased muscle artifact is noted over the anterior head regions. An irregular heart rate is noted throughout the study. Hyperventilation is performed with fair cooperation. This does not result in any physiological slowing but an increase in irregular heart rate is noted. Intermittent muscle and movement artifact contaminate the tracing. Photic stimulation was performed at various flash frequencies and failed to elicit a consistent driving response. Throughout photic stimulation, the awake background remained between 9-10 Hz. An irregular heart rate was persisted. At 13:00:04 the patient is talking, yet sustains a normal awake background with some motion movement artifact. As the patient continues to talk by 13:04:40 there is an increase in muscle movement artifact making the recording difficult to interpret. Photic stimulation was restarted at 13:09:40. This was associated with an increase in muscle artifact in the bilateral frontal temporal head electrode placements. Following this photic stimulation, the patient briefly entered drowsiness at 13:11:51. This was characterized by further attenuation of the background rhythm, the appearance of slow rolling eye movements and increase in beta activity anteriorly and centrally. At 13:12:52 photic stimulation was off and there was 5 seconds of a generalized increased muscle movement artifact which clinically correlated on video with the patient moving. Deeper stages of sleep were not achieved. IMPRESSION: This EEG is considered abnormal due to the abnormal EKG throughout the study due to periods of tachycardia & irregular heart rate. Otherwise, the wake background is normal for the patient's stated age. The brief episode of drowsiness was normal sleep architecture for the patient's stated age. No abnormalities were noted during photic stimulation nor hyperventilation. CLINICAL CORRELATION: The EEG itself does not rule out underlying seizure tendency thus further clinical correlation is needed. Serial EEGs are recommended and/or clinically indicated, a more prolonged ambulatory EEG would be helpful. The abnormal EKG warrants further investigation with a 12-lead EKG study as well as an echo to rule out possible condition such as mitral valve prolapse. MMMANJINDER / INOCENTE: [id number] / MTDD
--- NOTE | 2019-11-25 13:06 | P.CRDCN ---
History of Present Illness History of present illness: HISTORY OF PRESENTING ILLNESS This is a pleasant 18-year-old female past medical history significant for seizure disorder, depression and marijuana use. She denies prior history of coronary artery disease, cardiac arrhythmia or heart failure. She does not follow in the office with a eligibility counselor for any reason. We have been asked to see in consultation for abnormal rhythm noted during EEG. She is seen and examined while undergoing an echocardiogram ordered by neurology. She denies ever having symptoms of chest pain, shortness of breath or palpitations. She states at times when she changes positions she gets light headed and has to sit back down. She drinks a lot of water and exercises regularly. She recently has been started on zoloft and lamictal during this admission. She states she has been having seizures for the last 2 years but has never followed in the outpatient setting with a neurologist or followed any sort of medication regimen. According to the patient her aura before seizures is she feels her heart start racing and becomes flushed and warm. Then she wakes up on the floor with loss of bladder control. No EKG obtained on this admission. She did undergo an EKG November 12 when she came to ER for seizure. At that time it revealed sinus bradycardia heart rate 57, normal axis, normal intervals with ischemic changes. Laboratory data reviewed, CBC unremarkable, sodium 139, potassium 4.3, creatinine 0.79, LDL 120, HDL 46, TSH 1.76. She states her mother and brother REVIEW OF SYSTEMS At the time of my exam: CONSTITUTIONAL: Denies fever or chills. CARDIOVASCULAR: Denies chest pain, shortness of breath, orthopnea, PND or palpitations. RESPIRATORY: Denies cough. GASTROINTESTINAL: Denies abdominal pain, diarrhea, constipation, nausea or vomiting. MUSCULOSKELETAL: Denies myalgias. NEUROLOGIC: Denies numbness, tingling or weakness. ENDOCRINE: Denies fatigue, weight change, polydipsia or polyurina. GENITOURINARY: Denies burning, hematuria or urgency with micturation. HEMATOLOGIC: Denies history of anemia or bleeding. PHYSICAL EXAMINATION Blood pressure 112/55 heart rate 73 afebrile and maintaining oxygen saturation on room air. CONSTITUTIONAL: No apparent distress. HEENT: Head is normocephalic. Pupils are equal, round. Sclerae anicteric. Mucous membranes of the mouth are moist. No JVD. No carotid bruit. CHEST EXAMINATION: Lungs are clear to auscultation. No chest wall tenderness is noted on palpation or with deep breathing. HEART EXAMINATION: Regular rate and rhythm. S1, S2 heard. No murmurs, gallops or rub. ABDOMEN: Soft, nontender. Positive bowel sounds. EXTREMITIES: 2+ peripheral pulses, no lower extremity edema and no calf tenderness. NEUROLOGIC EXAMINATION: Patient is awake, alert and oriented x3. ASSESSMENT Seizure disorder, irregular heart rate noted during EEG prompting this consultation. Suicidal ideation Dyslipidemia PLAN Echocardiogram has been obtained and will be reviewed. EKG to be done for this admission. Previous EKG reviewed, no abnormalities noted. Recommend discontinuation of geodon given the risk of developing cardiomyopathy. Follow up as an outpatient for outpatient heart monitoring. Thank you kindly for this consultation. Nurse Practitioner note has been reviewed, I agree with a documented findings and plan of care. Patient was seen and examined. Past Medical History Past Medical History: Seizure Disorder History of Any Multi-Drug Resistant Organisms: None Reported Past Surgical History: No Surgical Hx Reported Smoking Status: Never smoker Medications and Allergies Home Medications Medication Instructions Recorded Confirmed Type Zcj-Eeyh-Hgkho Acid 1 cap PO DAILY 06/20/18 03/27/19 History [-U Capsule (formulary)] Amoxicillin 500 mg PO Q8H #30 capsule 03/27/19 Rx Amoxicillin 875 mg PO Q12HR #14 tablet 07/27/19 Rx Fluticasone Nasal [place] [Flonase 2 spr EA NOSTRIL DAILY #1 bottle 07/27/19 Rx Nasal [place]] Pseudoephedrine 12Hr [Sudafed 12Hr] 120 mg PO Q12H #1 box 07/27/19 Rx Allergies Allergy/AdvReac Type Severity Reaction Status Date / Time Fish Containing Products Allergy Swelling Verified 11/13/19 18:59 [Fish] shellfish derived [Shellfish] Allergy Swelling Verified 11/13/19 18:59 Physical Exam Vitals: Vital Signs Temp Pulse Resp BP Pulse Ox 11/25/19 07:16 98.3 F 73 18 112/55 96 11/24/19 21:00 99.0 F 11/24/19 17:00 98.1 F 11/24/19 12:00 98.3 F Results 11/23/19 06:36 11/23/19 06:33 Current Medications Generic Name Dose Route Start Last Admin Trade Name Freq PRN Reason Stop Dose Admin Acetaminophen 650 mg 11/22/19 05:34 Tylenol Tab PO Q4HR PRN Pain/Discomfort Al Hydroxide/Mg Hydroxide 30 ml 11/22/19 05:34 Maalox PO Q4HR PRN GI Upset Lamotrigine 25 mg 11/23/19 09:00 11/25/19 08:35 Lamictal PO 25 mg DAILY SANDY Administration Lorazepam 1 mg 11/22/19 05:34 Ativan PO TID PRN Anxiety, Agitation Magnesium Hydroxide 2,400 mg 11/22/19 05:34 Milk Of Magnesia PO DAILY PRN Constipation Sertraline HCl 25 mg 11/25/19 09:00 11/25/19 08:35 Zoloft PO 25 mg DAILY SANDY Administration Ziprasidone 20 mg 11/22/19 05:34 Geodon IM BID PRN Agitation or Acute Psychosis 11/23/19 06:36 11/23/19 06:33
[2019-11-26 06:17] VITALS: BP 125/83; PULSE 80; RESP 17; TEMP 98.7
[2019-11-26] MEDS: SERTRALINE 25 MG TAB PO SCH (09:03)
[2019-11-26] MEDS: lamoTRIgine 25 MG TAB PO SCH (09:03)
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
== END 2019-11-26 13:50 | disposition home or self-care (01) | DRG 885 ==
LOC: EC 03:06 → 3MHU 05:31
PROVIDERS: ADMIT Psychiatry & Neurology Psychiatry; ATTEND Psychiatry & Neurology Psychiatry
DX: F33.2 Major depressive disorder, recurrent severe without psychotic features (principal); E78.5 Hyperlipidemia, unspecified; F41.0 Panic disorder [episodic paroxysmal anxiety]; G40.409 Other generalized epilepsy and epileptic syndromes, not intractable, without status epilepticus; I49.9 Cardiac arrhythmia, unspecified; Q86.0 Fetal alcohol syndrome (dysmorphic); R32 Unspecified urinary incontinence; S51.812A Laceration without foreign body of left forearm, initial encounter; X78.9XXA Intentional self-harm by unspecified sharp object, initial encounter; W18.30XA Fall on same level, unspecified, initial encounter; Z59.0 Homelessness; Z72.820 Sleep deprivation; Z79.899 Other long term (current) drug therapy; Z83.3 Family history of diabetes mellitus; Z87.440 Personal history of urinary (tract) infections; Z91.410 Personal history of adult physical and sexual abuse; Z91.411 Personal history of adult psychological abuse; Z91.5 Personal history of self-harm; Z91.013 Allergy to seafood
CPT/HCPCS: 70544; 70547; 70553; 80053; 80061; 82075; 82248; 82306; 83036; 84443; 85025; 93005; 93306; 95816; 99285

== ENCOUNTER 2020-09-21 16:34 | Emergency (ER) | payer OTHER ==
[2020-09-21 16:42] VITALS: RESP 16; TEMP 99.4
[2020-09-21] MEDS ORDERED: lamoTRIgine 100 MG TAB PO STA (16:49)
[2020-09-21] MEDS ORDERED: ACETAMINOPHEN TAB 500 MG TAB PO STA (16:50)
--- NOTE | 2020-09-21 16:55 | ED ---
General Adult HPI - General Chief complaint: Seizure Stated complaint: seizure Time Seen by Provider: 09/21/20 16:38 Source: patient, EMS, RN notes reviewed Mode of arrival: EMS Limitations: no limitations - History of Present Illness Initial comments: Patient is a pleasant 19-year-old female presenting to the emergency department following a seizure. Patient states she does have a long-standing history of seizures, and gets them more than once weekly. Patient states she [place] one [place] and they told her she had to come here. Patient does complain of headache which is similar to after seizure. Patient denies trauma. Patient states the officer did catch her. Patient reports they told her lasted less than 1 minute. Patient states she was slightly confused earlier however that has resolved. Patient only complains of headache which again she states is normal for her and does request Tylenol or Motrin for this. She states she has not been taking her Lamictal lately. Patient states her normal dose is 100 mg - Related Data Home Medications Medication Instructions Recorded Confirmed Cza-Xizn-Qfgpe Acid 1 cap PO DAILY 06/20/18 03/27/19 [-U Capsule (formulary)] Previous Rx's Medication Instructions Recorded Fluticasone Nasal [place] [Flonase 2 spr EA NOSTRIL DAILY #1 bottle 07/27/19 Nasal [place]] Sertraline HCl [Zoloft] 100 mg PO DAILY #30 tab 11/26/19 lamoTRIgine [LaMICtal] 25 mg PO BID #60 tab 11/26/19 lamoTRIgine [LaMICtal] 100 mg PO DAILY #7 tab 09/21/20 Allergies Allergy/AdvReac Type Severity Reaction Status Date / Time Fish Containing Products Allergy Swelling Verified 09/21/20 16:39 [Fish] shellfish derived [Shellfish] Allergy Swelling Verified 09/21/20 16:39 Review of Systems ROS Statement: Those systems with pertinent positive or pertinent negative responses have been documented in the HPI. ROS Other: All systems not noted in ROS Statement are negative. Constitutional: Denies: fever Eyes: Denies: eye pain ENT: Denies: ear pain Respiratory: Denies: cough Cardiovascular: Denies: chest pain Endocrine: Denies: fatigue Gastrointestinal: Denies: abdominal pain Genitourinary: Denies: dysuria Musculoskeletal: Denies: back pain Skin: Denies: rash Neurological: Reports: as per HPI, headache Past Medical History Past Medical History: Seizure Disorder History of Any Multi-Drug Resistant Organisms: None Reported Past Surgical History: No Surgical Hx Reported Past Psychological History: Anxiety, Depression, PTSD Smoking Status: Former smoker Past Alcohol Use History: None Reported Past Drug Use History: None Reported General Exam Limitations: no limitations General appearance: alert, in no apparent distress Head exam: Present: atraumatic, normocephalic Eye exam: Present: normal appearance, PERRL, EOMI. Absent: nystagmus ENT exam: Present: normal exam Neck exam: Present: normal inspection. Absent: tenderness Respiratory exam: Present: normal lung sounds bilaterally Cardiovascular Exam: Present: regular rate, normal rhythm GI/Abdominal exam: Present: soft. Absent: tenderness Extremities exam: Present: normal inspection Neurological exam: Present: alert, oriented X3, CN II-XII intact. Absent: motor sensory deficit Expanded Neurological exam: Present: protecting the airway Patient oriented to: Present: person, place, time Speech: Present: fluid speech Cranial nerves: EOM's Intact: Normal Motor strength exam: RUE: 5, LUE: 5, RLE: 5, LLE: 5 Eye Response: (4) open spontaneously Motor Response: (6) obeys commands Verbal Response: (5) oriented Psychiatric exam: Present: normal affect, normal mood Skin exam: Present: normal color Course Vital Signs 09/21/20 16:39 Temperature 99.4 F Pulse Rate 76 Respiratory 16 Rate Blood Pressure 131/87 O2 Sat by Pulse 100 Oximetry Medical Decision Making - Medical Decision Making Patient reevaluated and symptom-free. Patient requesting discharge. Patient does not feel further evaluation as needed. Patient states she is out of her Lamictal and can refill the shortly with her primary care physician. Disposition Clinical Impression: Generalized seizure Disposition: HOME SELF-CARE Condition: Stable Instructions (If sedation given, give patient instructions): Recurrent Seizures in Adults (ED) Additional Instructions: Please follow-up with primary care physician in the next day or 2 for recheck. Also for medication review and further prescription. Return for seizures, fever or weakness, confusion, worsening symptoms or other concerns. Prescription was sent to [email or web address] . Prescriptions: lamoTRIgine [LaMICtal] 100 mg PO DAILY #7 tab Is patient prescribed a controlled substance at d/c from ED?: No Referrals: Lester Pozo [STAFF PHYSICIAN] - 1-2 days Time of Disposition: 17:45
[2020-09-21 18:04] VITALS: BP 124/72; PULSE 81
== END 2020-09-21 18:05 | disposition home or self-care (01) ==
LOC: EC 16:34
DX: G40.409 Other generalized epilepsy and epileptic syndromes, not intractable, without status epilepticus (principal); Z87.891 Personal history of nicotine dependence; Z91.013 Allergy to seafood
CPT/HCPCS: 99284

== ENCOUNTER 2020-11-05 12:18 | Emergency (ER) | payer OTHER ==
[2020-11-05 12:30] VITALS: RESP 16
[2020-11-05] MEDS ORDERED: LIDOCAINE VISCOUS 2% 15 ML CUP MUCOUS MEM ONE (12:50)
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
[2020-11-05] MEDS: dexAMETHasone 4 MG TAB PO STA ×4 (13:31→14:13)
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
[2020-11-05] MEDS ORDERED: ONDANSETRON ODT 4 MG TAB PO STA (13:42)
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
[2020-11-05 14:43] VITALS: BP 118/70; PULSE 82; TEMP 97.8
== END 2020-11-05 14:42 | disposition home or self-care (01) ==
LOC: EC 12:18
DX: J02.9 Acute pharyngitis, unspecified (principal); H60.92 Unspecified otitis externa, left ear; Z87.891 Personal history of nicotine dependence; Z91.013 Allergy to seafood
CPT/HCPCS: 87081; 87430; 87635; 73610; 72125; 70450; 99284; J8540

== ENCOUNTER 2020-12-17 16:19 | Emergency (ER) | payer OTHER ==
[2020-12-17] MEDS ORDERED: SODIUM CHLORIDE 0.9% 1,000 ML IV ONE (17:34)
--- NOTE | 2020-12-17 17:41 | ED ---
General Adult HPI - General Chief complaint: Vaginal Bleeding Stated complaint: epilepsy, seizure, & bleeding Time Seen by Provider: 12/17/20 17:15 Source: patient, RN notes reviewed Mode of arrival: ambulatory Limitations: no limitations - History of Present Illness Initial comments: 20-year-old female with a past medical or disorder presents to the emergency room for vaginal bleeding. Patient is a female currently estimating to be 6 weeks with an LMP of sometime early October. Patient states she started to have some vaginal bleeding and cramping 2 days ago. Patient states the vaginal bleeding has stopped but she still has some cramping. Patient denies any lightheadedness. Patient has no other complaints at this time including shortness of breath, chest pain, nausea or vomiting, headache, or visual changes. - Related Data Home Medications Medication Instructions Recorded Confirmed Olh-Xexb-Zdpqh Acid 1 cap PO DAILY 06/20/18 03/27/19 [-U Capsule (formulary)] Previous Rx's Medication Instructions Recorded Fluticasone Nasal [place] [Flonase 2 spr EA NOSTRIL DAILY #1 bottle 07/27/19 Nasal [place]] Sertraline HCl [Zoloft] 100 mg PO DAILY #30 tab 11/26/19 lamoTRIgine [LaMICtal] 25 mg PO BID #60 tab 11/26/19 lamoTRIgine [LaMICtal] 100 mg PO DAILY #7 tab 09/21/20 Ofloxacin 0.3% Otic Soln [Floxin 10 drops LEFT EAR DAILY 10 Days 11/05/20 0.3% Otic Soln] #10 ml Allergies Allergy/AdvReac Type Severity Reaction Status Date / Time Fish Containing Products Allergy Swelling Verified 12/17/20 16:21 [Fish] shellfish derived [Shellfish] Allergy Swelling Verified 12/17/20 16:21 Review of Systems ROS Statement: Those systems with pertinent positive or pertinent negative responses have been documented in the HPI. ROS Other: All systems not noted in ROS Statement are negative. Past Medical History Past Medical History: Seizure Disorder History of Any Multi-Drug Resistant Organisms: None Reported Past Surgical History: No Surgical Hx Reported Past Psychological History: Anxiety, Depression, PTSD Smoking Status: Former smoker Past Alcohol Use History: None Reported Past Drug Use History: None Reported General Exam Limitations: no limitations General appearance: alert, in no apparent distress Head exam: Present: atraumatic, normocephalic, normal inspection Eye exam: Present: normal appearance, PERRL, EOMI. Absent: scleral icterus, conjunctival injection, periorbital swelling ENT exam: Present: normal exam, mucous membranes moist Neck exam: Present: normal inspection, full ROM. Absent: tenderness, meningismus, lymphadenopathy Respiratory exam: Present: normal lung sounds bilaterally. Absent: respiratory distress, wheezes, rales, rhonchi, stridor Cardiovascular Exam: Present: regular rate, normal rhythm, normal heart sounds. Absent: systolic murmur, diastolic murmur, rubs, gallop, clicks GI/Abdominal exam: Present: soft, normal bowel sounds. Absent: distended, tenderness, guarding, rebound, rigid Course Vital Signs 12/17/20 12/17/20 16:21 19:27 Temperature 98.0 F 98.8 F Pulse Rate 104 H 77 Respiratory 18 Rate Blood Pressure 116/61 114/85 O2 Sat by Pulse 98 Oximetry Medical Decision Making - Medical Decision Making Vitals stable. CBC CMP unremarkable. HCG Quant is 12,000. Ultrasound shows a pole without cardiac stones at this time and may reflect normal early IUP, correlate with serial beta hCG. Patient reports she does not have [facility] follow-up at this time. I did contact on-call [facility] Dr Britt who will be happy to follow her hCG results. She will call office for the results. She will return for any worsening symptoms or increased bleeding. - Lab Data Result diagrams: 12/17/20 17:59 12/17/20 18:26 Lab Results 12/17/20 12/17/20 12/17/20 Range/Units 17:59 17:59 17:59 WBC 6.3 (3.8-10.6) k/uL RBC 4.24 (3.80-5.40) m/uL Hgb 12.4 (11.4-16.0) gm/dL Hct 37.0 (34.0-46.0) % MCV 87.4 (80.0-100.0) fL MCH 29.3 (25.0-35.0) pg MCHC 33.5 (31.0-37.0) g/dL RDW 13.0 (11.5-15.5) % Plt Count 240 (150-450) k/uL MPV 7.0 Neutrophils % 57 % Lymphocytes % 36 % Monocytes % 5 % Eosinophils % 1 % Basophils % 0 % Neutrophils # 3.6 (1.3-7.7) k/uL Lymphocytes # 2.2 (1.0-4.8) k/uL Monocytes # 0.3 (0-1.0) k/uL Eosinophils # 0.1 (0-0.7) k/uL Basophils # 0.0 (0-0.2) k/uL Sodium (137-145) mmol/L Potassium (3.5-5.1) mmol/L Chloride (98-107) mmol/L Carbon Dioxide (22-30) mmol/L Anion Gap mmol/L BUN (7-17) mg/dL Creatinine (0.52-1.04) mg/dL Est GFR (CKD-EPI)AfAm (>60 ml/min/1.73 sqM) Est GFR (CKD-EPI)NonAf (>60 ml/min/1.73 sqM) Glucose (74-99) mg/dL Calcium (8.4-10.2) mg/dL Total Bilirubin (0.2-1.3) mg/dL AST (14-36) U/L ALT (4-34) U/L Alkaline Phosphatase (38-126) U/L Total Protein (6.3-8.2) g/dL Albumin (3.5-5.0) g/dL HCG, Quant mIU/mL Urine Color Yellow Urine Appearance Cloudy H (Clear) Urine pH 6.5 (5.0-8.0) Ur Specific Emma 1.035 (1.001-1.035) Urine Protein 1+ H (Negative) Urine Glucose (UA) Negative (Negative) Urine Ketones Trace H (Negative) Urine Blood Negative (Negative) Urine Nitrite Negative (Negative) Urine Bilirubin Negative (Negative) Urine Urobilinogen 2.0 (<2.0) mg/dL Ur Leukocyte Esterase Trace H (Negative) Urine RBC 1 (0-5) /hpf Urine WBC 1 (0-5) /hpf Ur Squamous Epith Cells 9 H (0-4) /hpf Urine Bacteria Rare H (None) /hpf Urine Mucus Many H (None) /hpf Blood Type O Positive Blood Type Recheck No Previous Record Bld Type Recheck Status [facility] ONLY 12/17/20 Range/Units 18:26 WBC (3.8-10.6) k/uL RBC (3.80-5.40) m/uL Hgb (11.4-16.0) gm/dL Hct (34.0-46.0) % MCV (80.0-100.0) fL MCH (25.0-35.0) pg MCHC (31.0-37.0) g/dL RDW (11.5-15.5) % Plt Count (150-450) k/uL MPV Neutrophils % % Lymphocytes % % Monocytes % % Eosinophils % % Basophils % % Neutrophils # (1.3-7.7) k/uL Lymphocytes # (1.0-4.8) k/uL Monocytes # (0-1.0) k/uL Eosinophils # (0-0.7) k/uL Basophils # (0-0.2) k/uL Sodium 136 L (137-145) mmol/L Potassium 3.3 L (3.5-5.1) mmol/L Chloride 107 (98-107) mmol/L Carbon Dioxide 23 (22-30) mmol/L Anion Gap 6 mmol/L BUN 16 (7-17) mg/dL Creatinine 0.60 (0.52-1.04) mg/dL Est GFR (CKD-EPI)AfAm >90 (>60 ml/min/1.73 sqM) Est GFR (CKD-EPI)NonAf >90 (>60 ml/min/1.73 sqM) Glucose 72 L (74-99) mg/dL Calcium 8.4 (8.4-10.2) mg/dL Total Bilirubin 0.3 (0.2-1.3) mg/dL AST 21 (14-36) U/L ALT 9 (4-34) U/L Alkaline Phosphatase 55 (38-126) U/L Total Protein 6.1 L (6.3-8.2) g/dL Albumin 3.6 (3.5-5.0) g/dL HCG, Quant 28218.9 mIU/mL Urine Color Urine Appearance (Clear) Urine pH (5.0-8.0) Ur Specific Emma (1.001-1.035) Urine Protein (Negative) Urine Glucose (UA) (Negative) Urine Ketones (Negative) Urine Blood (Negative) Urine Nitrite (Negative) Urine Bilirubin (Negative) Urine Urobilinogen (<2.0) mg/dL Ur Leukocyte Esterase (Negative) Urine RBC (0-5) /hpf Urine WBC (0-5) /hpf Ur Squamous Epith Cells (0-4) /hpf Urine Bacteria (None) /hpf Urine Mucus (None) /hpf Blood Type Blood Type Recheck Bld Type Recheck Status Disposition Clinical Impression: Threatened miscarriage Disposition: HOME SELF-CARE Condition: Good Instructions (If sedation given, give patient instructions): Threatened Miscarriage (ED) Additional Instructions: Please repeat hCG in 2 days. Please follow-up with [facility] for the results by calling the office. Your hCG today was 12,[phone]. If you have any worsening symptoms return to the emergency room such as worsening bleeding. Is patient prescribed a controlled substance at d/c from ED?: No Referrals: Denis Britt DO [Doctor of Osteopathic Medicine] - 1-2 days Time of Disposition: 20:49
[2020-12-17 18:16] LABS: Basophils % (A) 0 %; Eosinophils # (A) 0.1 k/uL (0-0.7); Eosinophils % (A) 1 %; HGB 12.4 gm/dL (11.4-16.0); Lymphocytes # (A) 2.2 k/uL (1.0-4.8); Lymphocytes % (A) 36 %; MCH 29.3 pg (25.0-35.0); MCHC 33.5 g/dL (31.0-37.0); MCV 87.4 fL (80.0-100.0); Monocytes # (A) 0.3 k/uL (0-1.0); Monocytes % (A) 5 %; Neutrophils # (A) 3.6 k/uL (1.3-7.7); Neutrophils % (A) 57 %; Platelet Count 240 k/uL (150-450); RBC 4.24 m/uL (3.80-5.40); WBC 6.3 k/uL (3.8-10.6)
[2020-12-17 18:18] LABS: Appearance,Urine Cloudy (Clear); Bacteria,Urine Rare /hpf; Bilirubin,Urine Negative (Negative); Blood,Urine Negative (Negative); Color,Urine Yellow; Glucose,Urine (UA) Negative (Negative); Ketones,Urine Trace (Negative); Leukocyte Esterase,Urine Trace (Negative); Mucus,Urine Many /hpf; Nitrite,Urine Negative (Negative); PH, Urine 6.5 (5.0-8.0); Protein,Urine 1+ (Negative); RBC,Urine 1 /hpf (0-5); Specific Gravity,Urine 1.035 (1.001-1.035); Squamous Epithelial Cell,Urine 9 /hpf (0-4); WBC,Urine 1 /hpf (0-5)
[2020-12-17 19:09] LABS: ALT 9 U/L (4-34); AST 21 U/L (14-36); African American GFR (CKD) >90 (>60 ml/min/1.73 sqM); Albumin 3.6 g/dL (3.5-5.0); Alkaline Phosphatase 55 U/L (38-126); Anion Gap 6 mmol/L; Blood Urea Nitrogen 16 mg/dL (7-17); Calcium 8.4 mg/dL (8.4-10.2); Carbon Dioxide 23 mmol/L (22-30); Chloride 107 mmol/L (98-107); Glucose 72 mg/dL (74-99); Non-African American GFR(CKD) >90 (>60 ml/min/1.73 sqM); Potassium 3.3 mmol/L (3.5-5.1); Sodium 136 mmol/L (137-145); Total Bilirubin 0.3 mg/dL (0.2-1.3); Total Protein 6.1 g/dL (6.3-8.2)
[2020-12-17 19:26] LABS: HCG,Quantitative Serum 12393.9 mIU/mL
[2020-12-17 19:29] VITALS: TEMP 98.8
--- NOTE | 2020-12-17 20:02 | US ---
EXAMINATION TYPE: Transabdominal DATE OF EXAM: 12/17/2020 7:26 PM COMPARISON: NONE CLINICAL HISTORY: pain, bleeding. Pain, bleeding x 2 days. . EXAM PERFORMED: Transvaginal (TV) and Transabdominal (TA) EXAM MEASUREMENTS: GESTATIONAL AGE / DATING Physician Established: Not yet established. Dates by LMP: (6 weeks/4 days) EDC: 08/08/2021 Dates by First Scan: This is first scan. Dates by Current Scan for: ( 5 weeks/ 5 days) EDC: 08/14/2021 MATERNAL ANATOMY Uterus: 9.2 x 7.4 x 5.2 cm. Right Ovary: 4.2 x 3.0 x 2.6 cm. Appears slightly enlarged. Left Ovary: 2.9 x 1.3 x 1.4 cm. Post CDS / Adnexa: Fluid seen in CDS. Presence of free fluid: Anechoic fluid seen in cul de sac 1.2 x 1.8 x 1.6 cm. Presence of corpus luteal cyst: Area of mixed echogenicity and peripheral vascularity seen within the right ovary: 2.3 x 2.4 x 2.1 cm. Presence of subchorionic bleed: Not visualized. GESTATION / SURVEY CRL: Possible pole seen: 0.40 cm. (6 weeks/1 day) MSD: 1.18 cm. (5 weeks/2 days) Yolk Sac (normal less than 6mm): 2.6 mm. Heart Rate: Possibly too early to visualize heart tones. IUP: Possible pole seen. May be too early to visualize heart tones at this time. Date of LMP: 11/01/2020 Beta HcG (if available): 12,393.9 IMPRESSION: pole noted without cardiac stones at this time may reflect normal early IUP. Correlate with ser ial beta hCG and/or ultrasound.
[2020-12-17 21:34] VITALS: BP 136/74; PULSE 98; RESP 15
== END 2020-12-17 21:28 | disposition home or self-care (01) ==
LOC: EC 16:19
DX: O20.0 Threatened abortion (principal); G40.909 Epilepsy, unspecified, not intractable, without status epilepticus; Z87.891 Personal history of nicotine dependence; Z3A.01 Less than 8 weeks gestation of pregnancy
CPT/HCPCS: 36415; 76801; 76817; 80053; 81001; 84702; 85025; 86900; 86901; 96360; 99284

== ENCOUNTER → 2020-12-19 | Outpatient (CLI) | payer OTHER | END | disposition home or self-care (01) | LOC: LABMAIN 14:37 | PROVIDERS: ATTEND Physician Assistant Medical | DX: O02.81 Inappropriate change in quantitative human chorionic gonadotropin (hCG) in early pregnancy (principal); Z3A.00 Weeks of gestation of pregnancy not specified | CPT/HCPCS: 36415; 84702 ==

== ENCOUNTER 2021-01-24 14:28 | Emergency (ER) | payer OTHER ==
[2021-01-24 14:43] VITALS: TEMP 98
[2021-01-24] MEDS ORDERED: SODIUM CHLORIDE 0.9% 500 ML 500 ML IV STA (15:16)
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
[2021-01-24 16:00] LABS: Basophils % (A) 0 %; Eosinophils # (A) 0.2 k/uL (0-0.7); Eosinophils % (A) 2 %; HCT 37.4 % (34.0-46.0); HGB 13.2 gm/dL (11.4-16.0); Lymphocytes # (A) 1.1 k/uL (1.0-4.8); Lymphocytes % (A) 13 %; MCH 30.6 pg (25.0-35.0); MCHC 35.3 g/dL (31.0-37.0); MCV 86.5 fL (80.0-100.0); Mean Platelet Volume 7.3; Monocytes # (A) 0.4 k/uL (0-1.0); Monocytes % (A) 5 %; Neutrophils # (A) 6.3 k/uL (1.3-7.7); Neutrophils % (A) 78 %; Platelet Count 234 k/uL (150-450); RBC 4.32 m/uL (3.80-5.40); RDW 12.5 % (11.5-15.5)
[2021-01-24 16:13] VITALS: RESP 18
[2021-01-24 16:19] LABS: ALT 18 U/L (4-34); AST 40 U/L (14-36); African American GFR (CKD) >90 (>60 ml/min/1.73 sqM); Albumin 4.8 g/dL (3.5-5.0); Alcohol <10 mg/dL; Alkaline Phosphatase 60 U/L (38-126); Anion Gap 11 mmol/L; Blood Urea Nitrogen 12 mg/dL (7-17); Calcium 9.9 mg/dL (8.4-10.2); Carbon Dioxide 21 mmol/L (22-30); Chloride 105 mmol/L (98-107); Glucose 86 mg/dL (74-99); Non-African American GFR(CKD) >90 (>60 ml/min/1.73 sqM); Sodium 137 mmol/L (137-145); Total Bilirubin 0.6 mg/dL (0.2-1.3); Total Protein 7.7 g/dL (6.3-8.2)
[2021-01-24 16:23] LABS: Potassium 4.2 mmol/L (3.5-5.1)
[2021-01-24 16:33] LABS: HCG,Quantitative Serum 7213.5 mIU/mL
--- NOTE | 2021-01-24 17:16 | CT ---
EXAMINATION TYPE: CT brain cspine wo con DATE OF EXAM: 01/24/2021 COMPARISON: 11/05/2020 HISTORY: Seizure today with injury. CT DLP: 1100.5 mGycm Automated exposure control for dose reduction was used. Ventricles and sulci appear normal. There is no mass effect nor midline shift. There is no sign of in tracranial hemorrhage. Calvarium is intact. Skull base is intact. There is normal aeration of the mas toid sinuses. Cervical vertebra have normal spacing and alignment. Posterior elements are intact. Fac et joints are intact. Prevertebral soft tissues are intact. IMPRESSION: Normal CT scan of the cervical spine. Negative CT scan of the brain. There is hypertrophy of the nasal turbinates. This appears new compare d to old exam.
--- NOTE | 2021-01-24 17:18 | CT ---
EXAMINATION TYPE: CT facial bones wo con DATE OF EXAM: 01/24/2021 COMPARISON: None HISTORY: Seizure today with injury. CT DLP: 1100.5 mGycm Automated exposure control for dose reduction was used. Images obtained from the bottom of the mandible to the top of the frontal sinuses with no contrast. The mandibular ring is intact. Temporomandibular joints are intact. Zygomatic arches appear normal. N gonsalo bone is intact. The maxilla is intact. There is thickening of the nasal turbinates. The paranasa l sinuses appear fairly normal. The orbital margins are intact. There is no evidence of retro-orbital mass. There is normal aeration of the mastoid sinuses. External auditory canals appear normal. There is nor mal aeration of the epitympanic recess bilaterally. IMPRESSION: No fracture. Nasal turbinate hypertrophy or thickening.
--- NOTE | 2021-01-24 17:19 | US ---
EXAMINATION TYPE: Transabdominal DATE OF EXAM: 01/24/2021 5:01 PM COMPARISON: NONE CLINICAL HISTORY: seizure, fall, abd pain, bleeding. EXAM PERFORMED: EXAM MEASUREMENTS: GESTATIONAL AGE / DATING Physician Established: Not yet established Dates by LMP: ( 12weeks/ 0days) EDC: 08/08/2021 Dates by First Scan: (11 weeks/1 days) EDC: 08/14/2021 Dates by Current Scan for: (6 weeks/6 days) EDC: Not viable MATERNAL ANATOMY Uterus: 9.5 x 6.5 x 5.2cm Right Ovary: not seen due to bowel gas Left Ovary: not seen due to bowel gas Post CDS / Adnexa: wnl Presence of free fluid: no Presence of corpus luteal cyst: not seen Presence of subchorionic bleed: no GESTATION / SURVEY CRL: 8.7 (6 weeks/6 days) MSD: wnl Yolk Sac (normal less than 6mm): appears completely calcified Heart Rate: 0 bpm IUP: Demise Date of LMP: 11/01/2020 Beta HcG (if available): 7,000, previous 12/19/2020=17,000 IMPRESSION: There is a Intrauterine demise at approximately 6 weeks and 6 days gestation.
[2021-01-24 17:41] LABS: Appearance,Urine Cloudy (Clear); Bilirubin,Urine Negative (Negative); Blood,Urine Large (Negative); Color,Urine Yellow; Glucose,Urine (UA) Negative (Negative); Ketones,Urine 1+ (Negative); Leukocyte Esterase,Urine Negative (Negative); Mucus,Urine Rare /hpf; Nitrite,Urine Negative (Negative); Protein,Urine Negative (Negative); RBC,Urine >182 /hpf (0-5); Specific Gravity,Urine 1.007 (1.001-1.035); Squamous Epithelial Cell,Urine 1 /hpf (0-4); Urobilinogen,Urine <2.0 mg/dL (<2.0); WBC,Urine 5 /hpf (0-5)
[2021-01-24 17:57] LABS: Amphetamine Screen,Urine Not Detected (NotDetected); Barbiturate Screen,Urine Not Detected (NotDetected); Benzodiazepines Screen,Urine Not Detected (NotDetected); Cocaine Screen,Urine Not Detected (NotDetected); Methadone Screen, Urine Not Detected (NotDetected); Opiate Screen,Urine Not Detected (NotDetected); Oxycodone Screen, Urine Not Detected (NotDetected); Phencyclidine Screen,Urine Not Detected (NotDetected); Tricyclic Antidepressant,Urine Not Detected (NotDetected); Urn Cannabinoid Scrn Detected (NotDetected)
[2021-01-24 18:47] VITALS: BP 119/76; PULSE 84
== END 2021-01-24 18:47 | disposition home or self-care (01) ==
LOC: EC 14:28
DX: O99.351 Diseases of the nervous system complicating pregnancy, first trimester (principal); G40.909 Epilepsy, unspecified, not intractable, without status epilepticus; O03.4 Incomplete spontaneous abortion without complication; O99.341 Other mental disorders complicating pregnancy, first trimester; F32.9 Major depressive disorder, single episode, unspecified; F41.9 Anxiety disorder, unspecified; Z87.891 Personal history of nicotine dependence; Z79.899 Other long term (current) drug therapy; Z3A.01 Less than 8 weeks gestation of pregnancy
CPT/HCPCS: 36415; 93005; 86900; 86901; 80053; 83735; 85025; 81001; 84702; 80306; 76801; 72125; 70486; 70450; 96360; 99284; G0480; 80320

== ENCOUNTER 2021-03-15 10:20 | Emergency (ER) | payer OTHER ==
[2021-03-15 10:41] VITALS: BP 109/74; PULSE 67; RESP 18; TEMP 98.2
[2021-03-15] MEDS ORDERED: IBUPROFEN 600 MG TAB PO STA (11:17)
[2021-03-15] MEDS ORDERED: dexAMETHasone 4 MG TAB PO STA (11:18)
--- NOTE | 2021-03-15 11:20 | ED ---
ENT HPI - General Chief complaint: ENT Stated complaint: Ear infection, swollen throat Time Seen by Provider: 03/15/21 10:45 Source: patient, RN notes reviewed Mode of arrival: ambulatory Limitations: no limitations, language barrier - History of Present Illness Initial comments: 20-year-old female presents emergency Department chief complaint sore throat, ear pain. Patient states that this is a recurrent issue. Patient states started a few days ago neck pain better. No difficulty deploy swelling no other complaints. Denies any chance . - Related Data Home Medications Medication Instructions Recorded Confirmed Aco-Lscg-Hauqk Acid 1 cap PO DAILY 06/20/18 03/27/19 [-U Capsule (formulary)] Previous Rx's Medication Instructions Recorded Fluticasone Nasal [place] [Flonase 2 spr EA NOSTRIL DAILY #1 bottle 07/27/19 Nasal [place]] Sertraline HCl [Zoloft] 100 mg PO DAILY #30 tab 11/26/19 lamoTRIgine [LaMICtal] 25 mg PO BID #60 tab 11/26/19 lamoTRIgine [LaMICtal] 100 mg PO DAILY #7 tab 09/21/20 Ofloxacin 0.3% Otic Soln [Floxin 10 drops LEFT EAR DAILY 10 Days 11/05/20 0.3% Otic Soln] #10 ml Amoxicillin/Potassium Clav 1 tab PO Q12HR #20 tab 03/15/21 [Augmentin 875-125 Tablet] Ibuprofen [Motrin] 600 mg PO Q8HR PRN #30 tab 03/15/21 Allergies Allergy/AdvReac Type Severity Reaction Status Date / Time Fish Containing Products Allergy Swelling Verified 01/24/21 14:38 [Fish] shellfish derived [Shellfish] Allergy Swelling Verified 01/24/21 14:38 Review of Systems ROS Statement: Those systems with pertinent positive or pertinent negative responses have been documented in the HPI. ROS Other: All systems not noted in ROS Statement are negative. Past Medical History Past Medical History: Seizure Disorder Additional Past Medical History / Comment(s): ear infection History of Any Multi-Drug Resistant Organisms: None Reported Past Surgical History: No Surgical Hx Reported Past Psychological History: Anxiety, Depression, PTSD Smoking Status: Never smoker Past Alcohol Use History: None Reported Past Drug Use History: None Reported General Exam Limitations: no limitations General appearance: alert, in no apparent distress Head exam: Present: atraumatic, normocephalic, normal inspection Eye exam: Present: normal appearance, PERRL, EOMI. Absent: scleral icterus, conjunctival injection, periorbital swelling ENT exam: Present: mucous membranes moist, TM's normal bilaterally. Absent: normal exam, normal oropharynx (Erythematous pharynx with swollen tonsils) Neck exam: Present: normal inspection. Absent: tenderness, meningismus, lymphadenopathy Respiratory exam: Present: normal lung sounds bilaterally. Absent: respiratory distress, wheezes, rales, rhonchi, stridor Course Vital Signs 03/15/21 10:37 Temperature 98.2 F Pulse Rate 67 Respiratory 18 Rate Blood Pressure 109/74 O2 Sat by Pulse 100 Oximetry Medical Decision Making - Medical Decision Making Patient discharged on Augmentin return parameters discussed. Disposition Clinical Impression: Acute tonsillitis, Otalgia of both ears Disposition: HOME SELF-CARE Condition: Stable Instructions (If sedation given, give patient instructions): Tonsillitis (ED) Additional Instructions: Please return to the Emergency Department if symptoms worsen or any other concerns. Prescriptions: Amoxicillin/Potassium Clav [Augmentin 875-125 Tablet] 1 tab PO Q12HR #20 tab Ibuprofen [Motrin] 600 mg PO Q8HR PRN #30 tab PRN Reason: Pain Is patient prescribed a controlled substance at d/c from ED?: No Referrals: None,Stated [Primary Care Provider] - 1-2 days Time of Disposition: 11:20
== END 2021-03-15 12:54 | disposition home or self-care (01) ==
LOC: EC 10:20
DX: J03.90 Acute tonsillitis, unspecified (principal); H92.03 Otalgia, bilateral; Z91.013 Allergy to seafood
CPT/HCPCS: 99282; J8540